=== PATIENT | male | born 1965 | race Hispanic/Latino ===

== ENCOUNTER 2017-05-23 10:45 | Emergency (ER) | payer MEDICARE, OTHER ==
[2017-05-23 11:02] VITALS: BMI 22.6
--- NOTE | 2017-05-23 11:26 | ED PDOC ---
Arrival/HPI - General Time Seen by Provider: 05/23/17 11:01 Historian: Patient - History of Present Illness Narrative History of Present Illness (Text): 05/23/17 11:18 A 51 year old male presents to the emergency department requesting blood work and a toxicology screen. Patient reports he recently received cortisone injections for his back last week and other medications during a dental procedure yesterday. Patient believes he was injected with an unknown substance and states he "does not feel right". Patient denies any fever, chills, nausea, vomiting, diarrhea, abdominal pain, chest pain, shortness of breath or any other complaints. PMD: None Time/Duration: < week Symptom Course: Unchanged Quality: Other Context: Other Past Medical History - Provider Review Nursing Documentation Reviewed: Yes - Infectious Disease Hx of Infectious Diseases: None - Cardiac Hx Cardiac Disorders: No - Pulmonary Hx Respiratory Disorders: No - Neurological Hx Neurological Disorder: No - HEENT Hx HEENT Disorder: No - Renal Hx Renal Disorder: No - Endocrine/Metabolic Hx Endocrine Disorders: No - Hematological/Oncological Hx Blood Disorders: No - Integumentary Hx Dermatological Disorder: No - Musculoskeletal/Rheumatological Hx Back Pain: Yes - Gastrointestinal Hx Gastrointestinal Disorders: No - Genitourinary/Gynecological Hx Genitourinary Disorders: No - Psychiatric Hx Substance Use: No - Anesthesia Hx Anesthesia: Yes Hx Anesthesia Reactions: No Hx Malignant Hyperthermia: No Family/Social History - Physician Review Nursing Documentation Reviewed: Yes Family/Social History: No Known Family HX Smoking Status: Former Smoker Hx Alcohol Use: No Hx Substance Use: No Allergies/Home Meds Allergies/Adverse Reactions: Allergies No Known Allergies Allergy (Verified 05/23/17 11:01) Home Medications: Home Meds Medication Instructions Recorded Confirmed Gabapentin [Neurontin] 300 mg PO TID 05/23/17 05/23/17 Naproxen [Naprosyn Tab] 375 mg PO 05/23/17 Review of Systems - Physician Review All systems were reviewed & negative as marked: Yes - Review of Systems Constitutional: Normal. absent: Fevers, Night Sweats Respiratory: absent: SOB Cardiovascular: absent: Chest Pain Gastrointestinal: absent: Abdominal Pain, Diarrhea, Nausea, Vomiting Physical Exam Vital Signs Reviewed: Yes Vital Signs Temp Pulse Resp BP Pulse Ox 05/23/17 11:05 98.8 F 70 14 123/73 98 Temperature: Afebrile Blood Pressure: Normal Pulse: Regular Respiratory Rate: Normal Appearance: Positive for: Well-Appearing, Non-Toxic, Comfortable Pain Distress: None Mental Status: Positive for: Alert and Oriented X 3 - Systems Exam Head: Present: Atraumatic, Normocephalic Pupils: Present: PERRL Extroacular Muscles: Present: EOMI Conjunctiva: Present: Normal Mouth: Present: Moist Mucous Membranes, Other (Small aphthous ulcer on distal lateral portion of tongue, dental cavities, no gingivitis, no abscess) Pharnyx: Present: Normal. No: ERYTHEMA, EXUDATE, TONSILS ENLARGED, Peritonsilar Swelling Neck: Present: Normal Range of Motion Respiratory/Chest: Present: Clear to Auscultation, Good Air Exchange. No: Respiratory Distress, Accessory Muscle Use Cardiovascular: Present: Regular Rate and Rhythm, Normal S1, S2. No: Murmurs Abdomen: Present: Normal Bowel Sounds. No: Tenderness, Distention, Peritoneal Signs Back: Present: Normal Inspection Upper Extremity: Present: Normal Inspection, NORMAL PULSES. No: Cyanosis, Edema Lower Extremity: Present: Normal Inspection, NORMAL PULSES. No: Edema, CALF TENDERNESS Neurological: Present: GCS=15, CN II-XII Intact, Speech Normal Skin: Present: Warm, Dry, Normal Color. No: Rashes Psychiatric: Present: Alert, Oriented x 3, Normal Insight, Normal Concentration Medical Decision Making ED Course and Treatment: The pt is medically cleared for psychiatric admission. 05/23/17 11:44 EKG shows NSR at 61 BPM with normal axis, normal intervals, no acute ischemia. Interpreted by me. 05/23/17 12:[address] Vazquez. she believed the pt may have acute psychosis and is not safe for dc at this time. rec 1:1, geodon and ativan if needed. 12:53 the pt is attempting to leave at this time. I redirected him back to his bed. he is refusing CT at this time. PROCEDURE: CT HEAD WITHOUT CONTRAST. HISTORY: psych COMPARISON: None available. TECHNIQUE: Axial computed tomography images were obtained through the head/brain without intravenous contrast. Radiation dose: Total exam DLP = 711.72 mGy-cm. This CT exam was performed using one or more of the following dose reduction techniques: Automated exposure control, adjustment of the mA and/or kV according to patient size, and/or use of iterative reconstruction technique. FINDINGS: HEMORRHAGE: No intracranial hemorrhage. BRAIN: Morin-white matter differentiation is preserved. There is no mass, mass effect or abnormal extra-axial fluid collection. VENTRICLES: The ventricles are normal in size, shape and configuration. CALVARIUM: The skull base and calvarium are normal. PARANASAL SINUSES: Predominantly clear. MASTOID AIR CELLS: Predominantly clear. OTHER FINDINGS: None. IMPRESSION: No acute intracranial abnormality. CXR- nad - Lab Interpretations Lab Results: 05/23/17 12:07 05/23/17 12:07 Lab Results 05/23/17 12:20: Urine Color Yellow, Urine Appearance Clear, Urine pH 6.0, Ur Specific [place] <= 1.005, Urine Protein Negative, Urine Glucose (UA) Negative, Urine Ketones Negative, Urine Blood Negative, Urine Nitrate Negative, Urine Bilirubin Negative, Urine Urobilinogen 0.2, Ur Leukocyte Esterase Negative 05/23/17 12:07: Alcohol, Quantitative < 10 05/23/17 12:07: Salicylates < 1 L, Acetaminophen < 10.0 L 05/23/17 12:07: Sodium 137, Potassium 5.2 H, Chloride 102, Carbon Dioxide 27, Anion Gap 13, BUN 19, Creatinine 0.8, Est GFR ( Amer) > 60, Est GFR (Non- Af Amer) > 60, Random Glucose 100, Calcium 9.1, Total Bilirubin 0.5, AST 36, ALT 41, Alkaline Phosphatase 41, Total Protein 7.7, Albumin 4.5, Globulin 3.2, Albumin/Globulin Ratio 1.4 05/23/17 12:07: WBC 8.2, RBC 4.96, Hgb 15.4, Hct 45.6, MCV 91.9, MCH 31.0, MCHC 33.8, RDW 13.1, Plt Count 200, MPV 9.8, Gran % 70.8 H, Lymph % (Auto) 19.9 L, Dickson % (Auto) 7.7 H, Eos % (Auto) 1.2 L, Baso % (Auto) 0.4, Gran # 5.80, Lymph # 1.6, Dickson # 0.6, Eos # 0.1, Baso # 0.03 - RAD Interpretation Radiology Orders: 05/23/17 12:44 HEAD W/O CONTRAST [CT] Stat 05/23/17 15:23 CHEST PORTABLE [RAD] Stat - Medication Orders Current Medication Orders: Discontinued Medications Lorazepam (Ativan) 1 mg IM ONCE PRN; Protocol PRN Reason: Agitation Stop: 05/23/17 12:54 Ziprasidone (Geodon Inj) 10 mg IM STAT PRN; Protocol PRN Reason: Agitation Stop: 05/23/17 12:54 - Scribe Statement The provider has reviewed the documentation as recorded by the Dagoberto Anton Provider Scribe Attestation: All medical record entries made by the Scribe were at my direction and personally dictated by me. I have reviewed the chart and agree that the record accurately reflects my personal performance of the history, physical exam, medical decision making, and the department course for this patient. I have also personally directed, reviewed, and agree with the discharge instructions and disposition. Disposition/Present on Arrival - Present on Arrival Any Indicators Present on Arrival: No History of DVT/PE: No History of Uncontrolled Diabetes: No Urinary Catheter: No History of Decub. Ulcer: No History Surgical Site Infection Following: None - Disposition Referrals: Richmond Shell, [Primary Care Provider] - Follow up with primary
[2017-05-23 12:15] LABS: ADD MANUAL DIFF? NO
[2017-05-23 12:19] LABS: BASO # 0.03 K/mm3 (0.0-2.0); BASO % 0.4 % (0.0-3.0); EOS # 0.1 (0.0-0.7); EOS % 1.2 % (1.5-5.0); GRAN % 70.8 % (50.0-68.0); HEMATOCRIT 45.6 % (42.0-52.0); LYMPH # 1.6 (1.2-3.4); LYMPH % 19.9 % (22.0-35.0); MEAN CELL VOLUME 91.9 fL (80.0-105.0); MEAN CORPUSCULAR HGB CONC 33.8 g/dl (31.0-37.0); MEAN PLATELET VOLUME 9.8 fl (7.0-11.0); MONO # 0.6 (0.1-0.6); MONO % 7.7 % (1.0-6.0); PLATELET COUNT 200 10^3/uL (120.0-450.0); RED CELL DISTRIBUTION WIDTH 13.1 % (11.5-14.5); WHITE BLOOD COUNT 8.2 10^3/ul (4.5-11.0)
[2017-05-23 12:27] LABS: URINE APPEARANCE CLEAR (CLEAR); URINE BILIRUBIN NEGATIVE (NEGATIVE); URINE BLOOD NEGATIVE (NEGATIVE); URINE COLOR YELLOW (YELLOW); URINE GLUCOSE (UA) NEGATIVE (NEGATIVE); URINE KETONE NEGATIVE (NEGATIVE); URINE LEUKOCYTE ESTERASE NEGATIVE Leu/uL (NEGATIVE); URINE PROTEIN NEGATIVE mg/dL (<30 mg/dL); URINE UROBILINOGEN 0.2 E.U./dL (<1 E.U./dL)
[2017-05-23 12:32] LABS: ALB/GLOB RATIO 1.4 (1.1-1.8); ALKALINE PHOSPHATASE 41 U/L (38-133); ALT/SGPT 41 U/L (7-56); AST/SGOT 36 U/L (15-59); BILIRUBIN,TOTAL 0.5 mg/dL (0.2-1.3); BLOOD UREA NITROGEN 19 mg/dL (7-21); CALCIUM 9.1 mg/dL (8.4-10.5); CARBON DIOXIDE 27 mmol/L (21-33); CHLORIDE 102 mmol/L (98-107); GFR AFRICAN-AMERICAN > 60; GLUCOSE,RANDOM 100 mg/dL (70-110); POTASSIUM 5.2 mmol/L (3.6-5.0); SODIUM 137 mmol/L (132-148); TOTAL PROTEIN 7.7 g/dL (5.8-8.3)
--- NOTE | 2017-05-23 15:21 | CT ---
PROCEDURE: CT HEAD WITHOUT CONTRAST. HISTORY: psych COMPARISON: None available. TECHNIQUE: Axial computed tomography images were obtained through the head/brain without intravenous contrast. Radiation dose: Total exam DLP = 711.72 mGy-cm. This CT exam was performed using one or more of the following dose reduction techniques: Automated exposure control, adjustment of the mA and/or kV according to patient size, and/or use of iterative reconstruction technique. FINDINGS: HEMORRHAGE: No intracranial hemorrhage. BRAIN: Morin-white matter differentiation is preserved. There is no mass, mass effect or abnormal extra-axial fluid collection. VENTRICLES: The ventricles are normal in size, shape and configuration. CALVARIUM: The skull base and calvarium are normal. PARANASAL SINUSES: Predominantly clear. MASTOID AIR CELLS: Predominantly clear. OTHER FINDINGS: None. IMPRESSION: No acute intracranial abnormality.
--- NOTE | 2017-05-23 16:49 | RAD ---
HISTORY: psych COMPARISON: No prior. FINDINGS: LUNGS: The lungs are well inflated and clear. PLEURA: No significant pleural effusion identified, no pneumothorax apparent. CARDIOVASCULAR: Normal. OSSEOUS STRUCTURES: No significant abnormalities. VISUALIZED UPPER ABDOMEN: Normal. OTHER FINDINGS: None. IMPRESSION: No active pulmonary disease.
--- NOTE | 2017-05-23 17:42 | CARD ---
APPROVED REPORT EKG Measurement Heart [id number] ID [id number] <Conclusion> Normal sinus rhythm Normal ECG
[2017-05-23] MEDS ORDERED: Naproxen 550 mg Tab PO SCH (18:00)
[2017-05-23 18:28] VITALS: RESP 20; TEMP 99; O2SAT 98
--- NOTE | 2017-05-23 19:27 | ED PDOC ---
Physical Exam Vital Signs Temp Pulse Resp BP Pulse Ox 05/23/17 18:26 99 F 58 L 20 146/83 98 05/23/17 16:15 73 16 129/71 96 05/23/17 13:35 76 14 130/76 97 05/23/17 11:05 98.8 F 70 14 123/73 98 Medical Decision Making ED Course and Treatment: 05/23/17 19:00 Patient signed out to me by Dr. Santiago [place] [facility] [place]. 05/23/17 20:01 pt seen by [facility] screen[place] and not accepted reevaluated by [facility], and dc'd home pt in no distress, states he feels comfortable being dc'd home at this time with outpatient follow up patient denies suicidal or homicidal ideations, acting appropriately, ambulating with steady gait Pt states he understands to return to the ER right away for new or worsening symptoms or for inability to f/u with PMD or specialist as instructed. Patient states that he fully agrees with and understands discharge instructions. States that he agrees with the plan and disposition. Verbalized and repeated discharge instructions and plan. I have given the patient opportunity to ask any additional questions. - Lab Interpretations Lab Results: 05/23/17 12:07 05/23/17 12:07 Lab Results 05/23/17 12:30: Urine Opiates Screen Negative, Urine Methadone Screen Negative, Ur Barbiturates Screen Negative, Ur Phencyclidine Scrn Negative, Ur Amphetamines Screen Negative, U Benzodiazepines Scrn Negative, U Oth Cocaine Metabols Negative, U Cannabinoids Screen Negative 05/23/17 12:20: Urine Color Yellow, Urine Appearance Clear, Urine pH 6.0, Ur Specific [employer] <= 1.005, Urine Protein Negative, Urine Glucose (UA) Negative, Urine Ketones Negative, Urine Blood Negative, Urine Nitrate Negative, Urine Bilirubin Negative, Urine Urobilinogen 0.2, Ur Leukocyte Esterase Negative 05/23/17 12:07: Alcohol, Quantitative < 10 05/23/17 12:07: Salicylates < 1 L, Acetaminophen < 10.0 L 05/23/17 12:07: Sodium 137, Potassium 5.2 H, Chloride 102, Carbon Dioxide 27, Anion Gap 13, BUN 19, Creatinine 0.8, Est GFR ( Amer) > 60, Est GFR (Non- Af Amer) > 60, Random Glucose 100, Calcium 9.1, Total Bilirubin 0.5, AST 36, ALT 41, Alkaline Phosphatase 41, Total Protein 7.7, Albumin 4.5, Globulin 3.2, Albumin/Globulin Ratio 1.4 05/23/17 12:07: WBC 8.2, RBC 4.96, Hgb 15.4, Hct 45.6, MCV 91.9, MCH 31.0, MCHC 33.8, RDW 13.1, Plt Count 200, MPV 9.8, Gran % 70.8 H, Lymph % (Auto) 19.9 L, Will % (Auto) 7.7 H, Eos % (Auto) 1.2 L, Baso % (Auto) 0.4, Gran # 5.80, Lymph # 1.6, Will # 0.6, Eos # 0.1, Baso # 0.03 - RAD Interpretation Radiology Orders: 05/23/17 12:44 HEAD W/O CONTRAST [CT] Stat 05/23/17 15:23 CHEST PORTABLE [RAD] Stat - Medication Orders Current Medication Orders: Naproxen (Anaprox Ds) 550 mg PO BID ENRIQUETA Last Admin: 05/23/17 17:09 Dose: 550 mg Discontinued Medications Lorazepam (Ativan) 1 mg IM ONCE PRN; Protocol PRN Reason: Agitation Stop: 05/23/17 12:54 Ziprasidone (Geodon Inj) 10 mg IM STAT PRN; Protocol PRN Reason: Agitation Stop: 05/23/17 12:54 Disposition/Present on Arrival - Present on Arrival Any Indicators Present on Arrival: No History of DVT/PE: No History of Uncontrolled Diabetes: No Urinary Catheter: No History of Decub. Ulcer: No History Surgical Site Infection Following: None - Disposition Have Diagnosis and Disposition been Completed?: Yes Diagnosis: Medical clearance for psychiatric admission Disposition: HOME/ ROUTINE Disposition Time: 20:06 Patient Plan: Discharge Condition: GOOD Discharge Instructions (ExitCare): Medical Clearance for Psychiatric Care (ED) Additional Instructions: PLEASE RETURN TO THE EMERGENCY DEPARTMENT FOR NEW OR WORSENING SYMPTOMS. RETURN RIGHT AWAY IF YOU CANNOT FOLLOW UP WITH YOUR PRIMARY CARE DOCTOR, CLINIC, OR SPECIALIST IN 1-2 DAYS. Referrals: Richmond Shell, [Primary Care Provider] - Follow up with primary Taylor Martinez MD [Staff Provider] - Follow up with primary [facility] [Outside] - Follow up with primary
[2017-05-23 20:19] VITALS: BP 150/90; PULSE 70
== END 2017-05-23 20:07 | disposition home or self-care (01) ==
LOC: ED 10:45
DX: Z00.8 Encounter for other general examination (principal)
CPT/HCPCS: 70450; 71010; 80053; 81003; 85025; 93005; 99284; G0480